=== PATIENT | female | born 1975 | race Caucasian/White ===

== ENCOUNTER 2024-09-28 14:33 | Emergency (ER) | payer BC ==
[2024-09-28] MEDS ORDERED: METHOCARBAMOL 1,000 MG/10 ML VIAL ONE (15:14)
[2024-09-28] MEDS ORDERED: NA CHLORIDE 0.9% 500 ML ONE (15:15)
--- NOTE | 2024-09-28 15:20 | RAD REPORT ---
EXAM: Chest Single View HISTORY: CHEST PAIN COMPARISON: None. FINDINGS: LUNGS/PLEURA: The lungs are clear. No pleural effusions or pneumothorax. No pulmonary edema. MEDIASTINUM: The mediastinal silhouette is within normal limits. CARDIAC: The cardiac silhouette is within normal limits. UPPER ABDOMEN: No significant abnormality. BONES: No acute abnormality. LINES/TUBES/OTHER: N/A IMPRESSION: No evidence of acute cardiopulmonary disease.
[2024-09-28 15:22] LABS: Absolute Eosinophils 0.1 K/uL (0-0.5); Absolute Lymphocytes (CBC) 0.9 K/uL (0.7-4.9); Absolute Monocytes 0.4 K/uL (0.1-1.3); Absolute Neutrophil 3.7 K/uL (1.8-8.0); Basophils % 0.9 % (0-1.3); Eosinophils % 2.9 % (0-4.4); Hematocrit 38.4 % (36.0-45.0); Lymphocytes % 18.3 % (15.3-44.8); MCH 29.3 pg (27.0-35.0); MCHC 33.9 g/dL (32.0-36.0); MCV 86.5 fL (80-100); MPV 8.2 fL (7.6-11.3); Monocytes % 7.8 % (3.3-12.3); Neutrophils % 70.1 % (41.7-73.7); Platelets 172 thou/uL (152-406); RBC Red Blood Cell Count 4.44 M/uL (3.86-4.86); Red Cell Distribution Width 13.4 % (12.1-15.2)
[2024-09-28] MEDS ORDERED: KETOROLAC 30 MG/ML INJ ONE (15:23)
[2024-09-28 15:35] LABS: Anion Gap 9.9 mEq/L (5.0-15.0); BUN Blood Urea Nitrogen 9 mg/dL (7-18); Bicarbonate 24 mEq/L (21-32); Glomerular Filtration Rate 100 ml/min (=/>90); Glucose Level 97 mg/dL (74-106); Potassium 3.9 mEq/L (3.5-5.1); Sodium Level 137 mEq/L (136-145)
[2024-09-28 15:36] LABS: Troponin High Sensitivity < 3.0 pg/mL (<58.9)
[2024-09-28 15:53] LABS: SARS-CoV-2 Antigen CONTROL BLUE LINE VIS/BG OK; SARS-CoV-2 Antigen Rapid Res Negative (Negative)
--- NOTE | 2024-09-28 17:06 | RAD REPORT ---
EXAMINATION: CTA CHEST PE CLINICAL INDICATION: Female, 49 years old. CHEST PAIN TECHNIQUE: This examination was performed according to an angiographic protocol with 3D post-processi ng. This involves 3D reconstructions, MIPs, volume rendered images and/or shaded surface rendering. One or more of the following dose reduction techniques were used: Automated exposure control, adjustm ent of the mA and/or kV according to patient size, and/or iterative reconstruction. Unless otherwise specified, incidental findings do not require dedicated imaging follow-up. [id number]. COMPARISON: Same day chest radiograph. FINDINGS: LOWER NECK: Visualized thyroid gland and soft tissues are normal. LUNGS AND AIRWAYS: Airways are clear. No evidence of airspace or interstitial process.No suspicious a nd/or stable pulmonary nodules. PLEURA: No pleural effusion. No pneumothorax. Hemidiaphragms are normally positioned. MEDIASTINUM AND LYMPH NODES: No mediastinal mass or fluid collection. Normal size mediastinal, hilar, and axillary lymph nodes. Mild distal esophageal thickening. THORACIC AORTA: No thoracic aortic aneurysm. PULMONARY ARTERIES: Caliber is within normal limits. No pulmonary emboli identified. HEART: Normal heart size. Coronary arterial calcifications are present.No significant pericardial eff usion. OSSEOUS STRUCTURES AND CHEST WALL: No fracture or suspicious osseous lesions. UPPER ABDOMEN: No acute abnormalities.Benign appearing low density liver lesions. IMPRESSION: No evidence of pulmonary emboli to the subsegmental level. Lungs are clear.
--- NOTE | 2024-09-28 20:03 | EDPHYS ---
Physician Documentation [facility] Name: Ashley Madison Age: 49 yrs Sex: Female : 1975 Arrival Date: 09/28/2024 Time: 14:33 Bed 2 Private MD: ED Physician Andrew Rutherford HPI: 09/28 15:00 This 49 yrs old Female presents to ER via Ambulatory with complaints of Chest Pain, cp Back Pain. 15:00 The patient presents with pain that is acute, with no known mechanism of injury. cp 15:00 The symptoms are located in the left scapular area. cp 15:00 Onset: The symptoms/episode began/occurred yesterday. The pain radiates to the left cp side of chest. 15:00 Associated signs and symptoms: Pertinent negatives: abdominal pain, fever, numbness, cp weakness, cough. The problem was sustained from unknown cause. Modifying factors: the patient symptoms are aggravated by movement. Severity of symptoms: in the emergency department the symptoms are unchanged, despite home interventions. 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 - Infectious Disease History:: Denies. - Social history:: Smoking status: Patient denies any tobacco usage or history of. ROS: 15:03 Back: Positive for pain at rest, pain with movement, of the left scapular area, cp 15:03 Constitutional: Negative for body aches, chills, fever, poor PO intake, cp 15:03 Eyes: Negative for injury, pain, redness, and discharge, cp 15:03 Neck: Negative for pain with movement, pain at rest, stiffness, 15:03 Cardiovascular: Positive for chest pain, Negative for edema, palpitations, 15:03 Respiratory: Negative for cough, shortness of breath, wheezing, 15:03 Abdomen/GI: Negative for abdominal pain, vomiting, diarrhea, constipation, 15:03 Neuro: Negative for altered mental status, dizziness, headache, numbness, weakness, 15:03 All other systems are negative, Exam: 15:03 ECG was reviewed by the Attending Physician. cp 15:06 Constitutional: The patient appears in no acute distress, alert, awake, cp non-diaphoretic, non-toxic, well developed, well nourished, 15:06 Head/Face: Normocephalic, atraumatic. cp 15:06 Eyes: Periorbital structures: appear normal, Conjunctiva: normal, no exudate, no injection, Sclera: no appreciated abnormality, Lids and lashes: appear normal, bilaterally, 15:06 ENT: External ear(s): are unremarkable, Nose: is normal, Mouth: Lips: moist, Oral mucosa: moist, Posterior pharynx: Airway: no evidence of obstruction, patent, 15:06 Neck: ROM/movement: is normal, is supple, without pain, no range of motions limitations, no nuchal rigidity, 15:06 Chest/axilla: Inspection: normal, 15:06 Cardiovascular: Rate: normal, Rhythm: regular, Edema: is not appreciated, JVD: is not appreciated, 15:06 Respiratory: the patient does not display signs of respiratory distress, Respirations: normal, no use of accessory muscles, no retractions, labored breathing, is not present, Breath sounds: are clear throughout, no decreased breath sounds, no stridor, no wheezing, 15:06 Abdomen/GI: Exam negative for discomfort, distension, guarding, Inspection: abdomen appears normal, 15:06 Back: pain, that is mild, of the left scapular area, ROM is normal, 15:06 Neuro: Orientation: to person, place \T\ time. Mentation: is normal, Motor: moves all fours, strength is normal, Sensation: is normal, Vital Signs: 14:59 BP 130 / 78; Pulse 69; Resp 15; Temp 98.2(O); Pulse Ox 100% on R/A; Weight 61.23 kg; cm10 Height 5 ft. 5 in. ; Pain 5/10; 15:30 BP 106 / 75; Pulse 72; Resp 16; Pulse Ox 100% ; Pain 4/10; ll1 19:22 BP 117 / 70; Pulse 54; Resp 17; Temp 98.2; Pulse Ox 100% ; Pain 0/10; bm8 20:08 BP 118 / 76; Pulse 59; Resp 15; Temp 98.2; Pulse Ox 100% ; Pain 0/10; bm8 14:59 Body Mass Index 22.46 (61.23 kg, 165.1 cm) cm10 14:59 Pain Scale: Adult cm10 15:30 Pain Scale: Adult ll1 19:22 Pain Scale: Adult bm8 20:08 Pain Scale: Adult bm8 Felicitas Coma Score: 19:20 Eye Response: spontaneous(4). Motor Response: obeys commands(6). Verbal Response: bm8 oriented(5). Total: 15. 20:08 Eye Response: spontaneous(4). Motor Response: obeys commands(6). Verbal Response: bm8 oriented(5). Total: 15. MDM: 14:47 Medical Screening Exam initiated 15:30 Differential diagnosis: Abdominal Aortic Aneurysm Fracture sprain, pulmonary embolism, cp pneumonia, pneumothorax. 20:03 Data reviewed: vital signs, nurses notes, lab test result(s), EKG, radiologic studies, cp CT scan, plain films, and as a result, I will discharge patient. 20:03 I considered the following discharge prescriptions or medication management in the emergency department Medications were administered in the Emergency Department. See MAR. Independent interpretation of the following test(s) in the Emergency Department EKG: See my EKG interpretation above. Care significantly affected by the following chronic conditions: Lupus. 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 Response to treatment: the patient's symptoms have mildly improved after treatment, and as a result, I will discharge patient. Special discussion: Based on the patient's history, exam, and Dx evaluation, there is no indication for emergent intervention or inpatient Tx. It is understood by the patient/guardian that if the Sx's persist or worsen they need to return immediately for re-evaluation. 09/28 15:02 Order name: Basic Metabolic Panel; Complete Time: 16:18 ll1 09/28 15:02 Order name: CBC with Diff; Complete Time: 16:18 ll1 09/28 15:02 Order name: Troponin HS; Complete Time: 16:18 ll1 09/28 17:10 Interpretation: Reviewed. 09/28 15:09 Order name: D-Dimer; Complete Time: 16:18 cp 09/28 15:09 Order name: Magnesium; Complete Time: 16:18 cp 09/28 15:09 Order name: RSV; Complete Time: 16:18 cp 09/28 15:09 Order name: SARS RAPID; Complete Time: 16:18 cp 09/28 15:09 Order name: Influenza Screen (a \T\ B); Complete Time: 16:18 cp 09/28 17:11 Order name: Troponin HS; Complete Time: 20:02 cp 09/28 15:02 Order name: XRAY Chest (1 view); Complete Time: 16:18 ll1 09/28 16:19 Order name: CT Chest For PE Angio; Complete Time: 17:09 cp 09/28 15:02 Order name: Cardiac monitoring; Complete Time: 15:02 1 09/28 15:02 Order name: EKG - Nurse/Tech; Complete Time: 15:02 1 09/28 15:02 Order name: IV Saline Lock; Complete Time: 15:03 1 09/28 15:02 Order name: Labs collected and sent; Complete Time: 15:03 [facility] 09/28 15:02 Order name: O2 Per Protocol; Complete Time: 15:02 1 09/28 15:02 Order name: O2 Sat Monitoring; Complete Time: 15:02 ll1 EC:03 Rate is 71 beats/min. Rhythm is regular. AR interval is normal. QRS interval is normal. cp QT interval is normal. T waves are Inverted in leads III, aVR. Interpreted by me. Reviewed by me. Administered Medications: 15:23 Drug: NS 0.9% IV 500 ml 500 ml IV at 1 bolus once; to be given as a bolus over 30 ll1 minutes Volume: 500 ml; Route: IV; Rate: 1 bolus; Site: right antecubital; 20:09 Follow up: Response: No adverse reaction; IV Status: Completed infusion; IV Intake: bm8 500ml 15:23 Not Given (Patient Refused): methocarbamol1 grams IVPB once over 1 hrs; (mix in NS 100 ll1 mL) 15:30 Drug: Ketorolac IVP 15 mg IVP once Route: IVP; Site: right antecubital; ll1 16:00 Follow up: Response: No adverse reaction; Marked relief of symptoms jb4 Disposition Summary: 09/28/24 20:03 Discharge Ordered Notes: Location: Home cp Problem: new cp Symptoms: have improved cp Condition: Stable cp Diagnosis - Chest pain, unspecified cp - Dorsalgia, unspecified cp Followup: cp - With: Luciano Sanchez MD - When: 2 - 3 days - Reason: Recheck today's complaints Discharge Instructions: - Discharge Summary Sheet cp - Acute Back Pain, Adult cp - Nonspecific Chest Pain, Adult cp - Aspirin and Your Heart cp Forms: - Medication Reconciliation Form cp - Antibiotic Education cp - Prescription Opioid Use cp - Patient Portal Instructions cp - Leadership Thank You Letter cp Prescriptions: - Cyclobenzaprine 10 mg Oral Tablet - take 1 tablet ORAL route every 8 hours As needed; 30 tablet; Refills: 0, cp Product Selection Permitted - Diclofenac Sodium 75 mg Oral Tablet Sustained Release - take 1 tablet ORAL route 2 times per day; 30 tablet; Refills: 0, Product cp Selection Permitted Addendum: 10/01/2024 21:27 Co-signature as Attending Physician, Andrew Rutherford MD I reviewed the patient's care r n provided by the Advanced Practice Provider and agree with the diagnosis and treatment plan. Signatures: Dispatcher [employer] EDMS Andrew Rutherford MD MD rn Page, Corey, PA PA cp Vesna Patel RN RN ll1 Joann Degroot RN RN cm10 Michael Linn RN jb4 Robb Platt RN bm8 Corrections: (The following items were deleted from the chart) 09/28 15:01 15:01 PMHx: Diverticulitis; cm10 cm10 15:02 15:02 Chest Single View+RAD.RAD.BRZ ordered. EDMS EDMS 15:10 15:10 D-DIMER+COAG.LAB.BRZ ordered. EDMS EDMS 15:10 15:10 MAGNESIUM+C.LAB.BRZ ordered. EDMS EDMS 15:10 15:10 Respiratory Syncytial Virus Ag+BA.LAB.BRZ ordered. EDMS EDMS 15:10 15:10 SARS-COV-2 Antigen Rapid+I.LAB.BRZ ordered. EDMS EDMS 15:10 15:10 Influenza Screen (A \T\ B)+BA.LAB.BRZ ordered. EDMS EDMS
--- NOTE | 2024-09-28 20:03 | ER ---
Nurse's Notes [facility] Name: Ashley Madison Age: 49 yrs Sex: Female : 1975 Arrival Date: 09/28/2024 Time: 14:33 Bed 2 Private MD: Diagnosis: Chest pain, unspecified;Dorsalgia, unspecified Presentation: 09/28 14:59 Chief complaint: Patient states: Left sided back pain that radiates to left side of cm10 chest onset yesterday. Coronavirus screen: Client denies travel out of the [place] in the last 14 days. Ebola Screen: Patient denies travel to an Ebola-affected area in the 21 days before illness onset. Initial Sepsis Screen: Does the patient meet any 2 criteria? No. Patient's initial sepsis screen is negative. Does the patient have a suspected source of infection? No. Patient's initial sepsis screen is negative. Risk Assessment: Do you want to hurt yourself or someone else? Patient reports no desire to harm self or others. Onset of symptoms was September 28, 2024. 14:59 Method Of Arrival: Ambulatory cm10 14:59 Acuity: MIKE 3 cm10 Triage Assessment: 15:01 General: Appears in no apparent distress. comfortable, Behavior is calm, cooperative. cm10 Pain: Complains of pain in back Pain radiates to chest Pain currently is 5 out of 10 on a pain scale. Quality of pain is described as pressure. Neuro: No deficits noted. Level of Consciousness is awake, alert, obeys commands, Oriented to person, place, time, situation, Appropriate for age. Respiratory: No deficits noted. Airway is patent Respiratory effort is even, unlabored, Respiratory pattern is regular, symmetrical. 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 - Infectious Disease History:: Denies. - Social history:: Smoking status: Patient denies any tobacco usage or history of. Screenin:20 [facility] ED Fall Risk Assessment (Adult) History of falling in the last 3 months, bm8 including since admission No falls in past 3 months (0 pts) Confusion or Disorientation No (0 pts) Intoxicated or Sedated No (0 pts) Impaired Gait No (0 pts) Mobility Assist Device Used No (0 pt) Altered Elimination No (0 pt) Score/Fall Risk Level 0 - 2 = Low Risk Oriented to surroundings, Maintained a safe environment, Educated pt \T\ family on fall prevention, incl call for assistance when getting out of bed, Assessed \T\ reinforced patient's understanding of fall precautions, Hourly rounding (assess needs \T\ fall precautionary measures) done, Used ambulatory aids as needed (educated on \T\ assisted with), Used gait belt as appropriate. Abuse screen: Denies threats or abuse. Nutritional screening: No deficits noted. Tuberculosis screening: No symptoms or risk factors identified. Assessment: 15:23 General: Appears in no apparent distress. Behavior is calm, cooperative, appropriate ll1 for age. Pain: Complains of pain in chest Pain currently is 4 out of 10 on a pain scale. Quality of pain is described as pressure, Pain began. Cardiovascular: Reports chest pain, Heart tones S1 S2 present. 16:30 Reassessment: Patient appears in no apparent distress at this time. Patient and/or jb4 family updated on plan of care and expected duration. Pain level reassessed. Patient is alert, oriented x 3, equal unlabored respirations, skin warm/dry/pink. 17:35 Reassessment: Patient appears in no apparent distress at this time. Patient and/or jb4 family updated on plan of care and expected duration. Pain level reassessed. Patient is alert, oriented x 3, equal unlabored respirations, skin warm/dry/pink. 19:20 General: Appears in no apparent distress. comfortable, Behavior is calm, cooperative, bm8 appropriate for age. Pain: Denies pain. Neuro: No deficits noted. Level of Consciousness is awake, alert, obeys commands, Oriented to person, place, time, situation, Appropriate for age. Cardiovascular: Denies chest pain, shortness of breath, Capillary refill < 3 seconds in bilateral fingers. Respiratory: Airway is patent Trachea midline Respiratory effort is even, unlabored, Respiratory pattern is regular, symmetrical, Breath sounds are clear bilaterally. GI: No signs and/or symptoms were reported involving the gastrointestinal system. : No signs and/or symptoms were reported regarding the genitourinary system. EENT: No signs and/or symptoms were reported regarding the EENT system. Derm: No signs and/or symptoms reported regarding the dermatologic system. Musculoskeletal: No signs and/or symptoms reported regarding the musculoskeletal system. 20:08 Reassessment: Patient appears in no apparent distress at this time. No changes from bm8 previously documented assessment. Patient and/or family updated on plan of care and expected duration. Pain level reassessed. Patient is alert, oriented x 3, equal unlabored respirations, skin warm/dry/pink. Patient denies pain at this time. Patient states feeling better. Patient states symptoms have improved. Vital Signs: 14:59 BP 130 / 78; Pulse 69; Resp 15; Temp 98.2(O); Pulse Ox 100% on R/A; Weight 61.23 kg; cm10 Height 5 ft. 5 in. ; Pain 5/10; 15:30 BP 106 / 75; Pulse 72; Resp 16; Pulse Ox 100% ; Pain 4/10; ll1 19:22 BP 117 / 70; Pulse 54; Resp 17; Temp 98.2; Pulse Ox 100% ; Pain 0/10; bm8 20:08 BP 118 / 76; Pulse 59; Resp 15; Temp 98.2; Pulse Ox 100% ; Pain 0/10; bm8 14:59 Body Mass Index 22.46 (61.23 kg, 165.1 cm) cm10 14:59 Pain Scale: Adult cm10 15:30 Pain Scale: Adult ll1 19:22 Pain Scale: Adult bm8 20:08 Pain Scale: Adult bm8 [place] Coma Score: 19:20 Eye Response: spontaneous(4). Motor Response: obeys commands(6). Verbal Response: bm8 oriented(5). Total: 15. 20:08 Eye Response: spontaneous(4). Motor Response: obeys commands(6). Verbal Response: bm8 oriented(5). Total: 15. ED Course: 14:35 Patient arrived in ED. mr 14:35 José Miguel Garza PA is PHCP. cp 14:35 Andrew Rutherford MD is Attending Physician. cp 14:50 Vesna Patel, DEMETRIUS is Primary Nurse. ll1 14:50 Arm band placed on Patient placed in an exam room, on a stretcher. ll1 15:00 Triage completed. cm10 15:01 EKG completed in triage. Results shown to MD. cm10 15:02 EKG done, by ED staff, reviewed by José Miguel FRANK. cm10 15:05 Initial lab(s) drawn, by me, sent to lab. Inserted saline lock: 22 gauge in right ll1 antecubital area, using aseptic technique. Blood collected. Flushed with 10 mL NS. 15:17 XRAY Chest (1 view) In Process Unspecified. EDMS 15:28 RSV Sent. ll1 15:28 SARS RAPID Sent. ll1 15:28 Influenza Screen (a \T\ B) Sent. ll1 16:59 CT Chest For PE Angio In Process Unspecified. EDMS 19:22 Patient has correct armband on for positive identification. Provided Education on:. bm8 Client placed on continuous cardiac and pulse oximetry monitoring. NIBP monitoring applied. hand drawer in on. Pulse ox on. NIBP on. Door closed. Noise minimized. Warm blanket given. Pillow given. Verbal reassurance given. 19:22 No provider procedures requiring assistance completed. Patient maintains SpO2 bm8 saturation greater than 95% on room air. 20:03 Luciano Sanchez MD is Referral Physician. cp 20:08 IV discontinued, intact, bleeding controlled, No redness/swelling at site. Pressure bm8 dressing applied. Administered Medications: 15:23 Drug: NS 0.9% IV 500 ml 500 ml IV at 1 bolus once; to be given as a bolus over 30 ll1 minutes Volume: 500 ml; Route: IV; Rate: 1 bolus; Site: right antecubital; 20:09 Follow up: Response: No adverse reaction; IV Status: Completed infusion; IV Intake: bm8 500ml 15:23 Not Given (Patient Refused): methocarbamol1 grams IVPB once over 1 hrs; (mix in NS 100 ll1 mL) 15:30 Drug: Ketorolac IVP 15 mg IVP once Route: IVP; Site: right antecubital; ll1 16:00 Follow up: Response: No adverse reaction; Marked relief of symptoms jb4 Medication: 19:20 VIS not applicable for this client. bm8 Intake: 20:09 IV: 500ml; Total: 500ml. bm8 Outcome: 20:03 Discharge ordered by . cp 20:10 Discharged to home ambulatory, with family, bm8 20:10 Condition: stable 20:10 Discharge instructions given to patient, family, Instructed on discharge instructions, follow up and referral plans. no drinking with medication, no driving heavy equipment, medication usage, safety practices, Demonstrated understanding of instructions, follow-up care, medications, Prescriptions given X 2, 20:21 Patient left the ED. bm8 Signatures: Dispatcher [employer] EDCA Alycia Torrez, Reg Reg mr José Miguel Garza, Michael Saini cp, RN RN jb4 Vesna Patel RN RN ll1 Joann Degroot RN RN cm10 Robb Platt RN RN bm8 Corrections: (The following items were deleted from the chart) 15:01 15:01 PMHx: Diverticulitis; cm10 cm10
[2024-09-28 22:01] VITALS: TEMP 98.2; O2SAT 100
[2024-09-28 22:11] VITALS: BP 118/76
--- NOTE | 2024-10-01 13:02 | EKG ---
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
== END 2024-09-28 20:21 | disposition home or self-care (01) ==
LOC: ER 14:33
DX: R07.9 Chest pain, unspecified (principal); M54.9 Dorsalgia, unspecified; Z11.52 Encounter for screening for COVID-19
CPT/HCPCS: 96361; 85025; 80048; 36415; 83735; 85379; 84484 ×2; 87807; 87804 ×2; 71275; 71045; 96374; 99285; 87811; Q9967; J2800; J7040; 93005